=== PATIENT | female | born 1990 | race Caucasian/White ===

== ENCOUNTER 2017-12-30 11:08 | Emergency (ER) | payer OTHER ==
[~2017-12-30] VITALS: Ht 160 cm; Wt 57.6 kg
[2017-12-30] MEDS ORDERED: BENADRYL50 MG PO (14:08)
[2017-12-30] MEDS ORDERED: MEDROLPACK PO (14:08)
== END 2017-12-30 14:41 | disposition home or self-care (01) ==
LOC: ER 11:08
DX: L50.0 Allergic urticaria (principal)

== ENCOUNTER 2020-10-28 13:00 | Inpatient (IN) | payer OTHER ==
[~2020-10-28] VITALS: Ht 157.5 cm; Wt 2.7 kg
[~2020-10-28 13:00] MED LIST: BENADRYL50 MG PO; MEDROLPACK PO
[2020-11-12] MEDS ORDERED: PRENATAL CAPLE1 EAC1 PO (11:29)
== END 2020-11-15 14:47 | disposition home or self-care (01) | DRG 786 ==
LOC: LDR 11-12 05:58 → OB/GYN 11-12 05:58 → LDR 11-12 10:26 → OB/GYN 11-12 21:26 → SURH 11-18 13:00
PROVIDERS: ADMIT Obstetrics & Gynecology; ATTEND Obstetrics & Gynecology
PROC: 10907ZC Drainage of Amniotic Fluid, Therapeutic from Products of Conception, Via Natural or Artificial Opening (ICD-10-PCS; 2020-11-12)
PROC: 3E033VJ Introduction of Other Hormone into Peripheral Vein, Percutaneous Approach (ICD-10-PCS; 2020-11-12)
PROC: 4A1HXFZ Monitoring of Products of Conception, Cardiac Rhythm, External Approach (ICD-10-PCS; 2020-11-12)
PROC: 10D00Z1 Extraction of Products of Conception, Low, Open Approach (ICD-10-PCS; principal; 2020-11-12 15:00)
DX: O65.9 Obstructed labor due to maternal pelvic abnormality, unspecified (principal); O98.52 Other viral diseases complicating childbirth; U07.1 COVID-19; Z3A.39 39 weeks gestation of pregnancy; Z37.0 Single live birth

== ENCOUNTER 2020-11-08 16:10 | Outpatient (CLI) | payer OTHER | END 2020-11-08 16:50 | disposition home or self-care (01) | LOC: NST 16:10 | PROVIDERS: ATTEND Obstetrics & Gynecology | DX: Z34.83 Encounter for supervision of other normal pregnancy, third trimester (principal) ==